=== PATIENT | male | born 1955 | race Caucasian/White ===

== ENCOUNTER 2022-09-27 02:48 | Emergency (ER) | payer MEDICARE, BC, SELFPAY ==
[2022-09-27 02:59] VITALS: BP 161/89; PULSE 91; RESP 16; TEMP 36.6; O2SAT 95; BMI 27.2
--- NOTE | 2022-09-27 03:21 | CRLHL7_ITS ---
For Patients: As a result of the Cures Act, medical imaging exams and procedure reports are released immediately into your electronic medical record. You may view this report before your referring provider. If you have questions, please contact your health care provider. INDICATION: Fall, trauma. TECHNIQUE: CT head without contrast. COMPARISON: None. FINDINGS: No intracranial hemorrhage. No discrete mass or mass effect. There is no midline shift. The basilar cisterns are patent. No hydrocephalus. The rashid-white matter interface is otherwise preserved. No acute osseous abnormality. No extracalvarial soft tissue abnormality. The mastoid air cells are clear. Partial opacification of the ethmoid air cells and maxillary sinuses. Trace air-fluid level in the right maxillary sinus. High attenuation layering foci in the right maxillary base, potentially blood products. Subcutaneous edema abutting the right orbit. The visualized portions of the orbits and globes are unremarkable. IMPRESSION: No acute intracranial process per unenhanced head CT. Please note that all CT scans at this facility use dose modulation, iterative reconstruction, and/or weight-based dosing when appropriate to reduce radiation dose to as low as reasonably achievable. Dictated by Sean Griggs MD @ 09/27/2022 4:05:07 AM (Electronically Signed)
--- NOTE | 2022-09-27 03:21 | CRLHL7_ITS ---
For Patients: As a result of the Century Cures Act, medical imaging exams and procedure reports are released immediately into your electronic medical record. You may view this report before your referring provider. If you have questions, please contact your health care provider. INDICATION: Fall, impact right cheek and orbit. TECHNIQUE: CT maxillofacial without contrast. COMPARISON: Head CT same day. FINDINGS/IMPRESSION: Facial bones: Acute comminuted minimally depressed fracture of the superior orbital wall with extension into the frontal sinus. Acute comminuted minimally displaced inferior right orbital wall fracture. Acute comminuted fracture of the none the superior aspect of the medial orbital wall, axial images 147 through 130. Likely right lamina papyracea fracture. Orbits and globes: Small amount of extraconal air within the right orbit. Globes are intact. No discrete rectus entrapment. Sinuses: Blood products within the right maxillary sinus. There is blood products likely within the ethmoid air cells and frontal sinuses. Left maxillary mucosal wall thickening. Please note that all CT scans at this facility use dose modulation, iterative reconstruction, and/or weight-based dosing when appropriate to reduce radiation dose to as low as reasonably achievable. Dictated by Sean Griggs MD @ 09/27/2022 4:13:56 AM (Electronically Signed)
--- NOTE | 2022-09-27 03:31 | ED.GENADULT ---
HPI - General Adult General Chief complaint: Laceration/Wound Stated complaint: need stiches on right eyebrow Time Seen by Provider: 09/27/22 03:00 Source: patient Mode of arrival: ambulatory Limitations: no limitations History of Present Illness HPI narrative: Generally healthy 67-year-old male coming in today after slipping on the concrete and falling face forward. Patient was caring some gets when he lost his footing and fell hitting his forehead on the ground. He suffers a laceration to the right eyebrow area. He denies headache, blurry vision. He denies any neck pain or other injury. He is not on any blood thinners. Last tetanus was in 2012. Related Data Home Medications Medication Instructions Recorded Confirmed montelukast 10 mg tablet mg 09/27/22 Allergies Allergy/AdvReac Type Severity Reaction Status Date / Time No Known Drug Allergies Allergy Verified 09/27/22 03:01 Review of Systems Status of ROS: Reports: 10 or more systems reviewed and unremarkable except as noted in History and below PFSH [facility] Social History Smoking Status: Unknown if ever smoked Exam Narrative: Exam Narrative: Well-nourished well-developed patient in no acute distress. Alert and oriented. Answers questions appropriately. Mood and affect are appropriate. Thoughts are goal oriented and rational. No tangential or magical thinking noted. Patient speaks in full sentences without needing to catch his breath. GCS is 15. Speech is slightly slurred, patient is clearly intoxicated. HEENT: Normocephalic . Pupils are equally round reactive to light. Extraocular muscles are intact. Conjunctivae are moist without any icterus noted. Moist mucous membranes. Neck is soft without any lymphadenopathy. He has no tenderness to palpation over the cervical spine. He has full range of motion with flexion, extension, side bending and rotation. He does have a approximately 1 inch laceration just lateral to the right eyebrow the penetrates the dermis and goes into the subcutaneous tissue. He has surrounding ecchymosis. He has no crepitus or tenderness around the orbit. Cardiovascular: Heart is regular rate and rhythm. Lungs: Clear to auscultation bilaterally. Patient takes deep breaths without any discomfort. Abdomen: Soft and nontender with normal bowel sounds. Strength is 5/5 of the upper and lower extremities. Cranial nerves 3-12 are normal. There is no nystagmus either horizontally or vertically. Gait is normal. Back: Normal appearance. No tenderness over the thoracic or lumbar spine. No bruising or abrasions noted. Const: Vital Signs, click to edit/add: Vital Signs - 24 hr 09/27/22 02:59 09/27/22 06:52 Temperature 97.8 F 98.0 F Pulse Rate [Left P ulse Oximeter] 91 97 Respiratory Rate 16 18 Blood Pressure [Le ft Upper Arm] 161/89 H 139/94 H Pulse Oximetry 95 96 Oxygen Delivery Me thod Room Air Room Air Course Course Hospital Course: We proceeded with a head, cervical and facial CT-facial CT does show multiple acute fractures around the orbit. Head and cervical spine CT unremarkable. His eyebrow laceration was anesthetized with lidocaine. Wound was then cleaned, irrigated and explored. No debris was found inside. The wound does extend into the subcutaneous tissue and does not penetrate through the subcutaneous tissue. There is no bone visible. 1 6.0 Vicryl suture was placed in the subcutaneous space to hold that space together, this was followed by simple interrupted sutures with 5 0 Ethilon on the skin. I did speak to at [facility], he did recommend the patient be transferred so that he could be evaluated by the facial trauma team. Vital Signs Vital signs: Initial Vital Signs Temperature 97.8 F 09/27/22 02:59 Temperature Source Temporal Artery Scan 09/27/22 02:59 Pulse Rate 91 09/27/22 02:59 Respiratory Rate 16 09/27/22 02:59 Blood Pressure 161/89 H 09/27/22 02:59 Blood Pressure Mean 113 09/27/22 02:59 Blood Pressure Position Sitting 09/27/22 02:59 Pulse Oximetry 95 09/27/22 02:59 Oxygen Delivery Method 09/27/22 02:59 Vital Signs Temperature 97.8 F 09/27/22 02:59 Pulse Rate 91 09/27/22 02:59 Respiratory Rate 16 09/27/22 02:59 Blood Pressure 161/89 H 09/27/22 02:59 Pulse Oximetry 95 09/27/22 02:59 Oxygen Delivery Method 09/27/22 02:59 Temperature 98.0 F 09/27/22 06:52 Pulse Rate 97 09/27/22 06:52 Respiratory Rate 18 09/27/22 06:52 Blood Pressure 139/94 H 09/27/22 06:52 Pulse Oximetry 96 09/27/22 06:52 Oxygen Delivery Method 09/27/22 06:52 Medical Decision Making MDM Narrative Medical decision making narrative: 67-year-old male status post fall with facial laceration and multiple facial fractures. Patient will be transferred to [facility] for further management. Unfortunately, there are no ambulances available for transfer therefore patient will be in our ER for the next couple of hours until one becomes available. Patient transferred just after 7:[address] scan - head: Attestation: I have reviewed the pertinent imaging results. Radiologist's impression: CT head without contrast. COMPARISON: None. FINDINGS: No intracranial hemorrhage. No discrete mass or mass effect. There is no midline shift. The basilar cisterns are patent. No hydrocephalus. The rashid-white matter interface is otherwise preserved. No acute osseous abnormality. No extracalvarial soft tissue abnormality. The mastoid air cells are clear. Partial opacification of the ethmoid air cells and maxillary sinuses. Trace air-fluid level in the right maxillary sinus. High attenuation layering foci in the right maxillary base, potentially blood products. Subcutaneous edema abutting the right orbit. The visualized portions of the orbits and globes are unremarkable. IMPRESSION: No acute intracranial process per unenhanced head CT. CT facial bones: Attestation: I have reviewed the pertinent imaging results. Radiologist's impression: CT maxillofacial without contrast. COMPARISON: Head CT same day. FINDINGS/IMPRESSION: Facial bones: Acute comminuted minimally depressed fracture of the superior orbital wall with extension into the frontal sinus. Acute comminuted minimally displaced inferior right orbital wall fracture. Acute comminuted fracture of the none the superior aspect of the medial orbital wall, axial images 147 through 130. Likely right lamina papyracea fracture. Orbits and globes: Small amount of extraconal air within the right orbit. Globes are intact. No discrete rectus entrapment. Sinuses: Blood products within the right maxillary sinus. There is blood products likely within the ethmoid air cells and frontal sinuses. Left maxillary mucosal wall thickening. CT cervical spine: Attestation: I have reviewed the pertinent imaging results. Radiologist's impression: CT cervical spine without contrast. COMPARISON: None. FINDINGS: Vertebrae: Alignment is normal. There are no fractures or suspicious bony lesions. Discs and facet joints: Mild multilevel degenerative disc and facet joint spondylosis. Extraspinal findings: Prevertebral soft tissues, visualized airway, and visualized lungs are unremarkable. IMPRESSION: No sign of acute injury in the cervical spine. Discharge Plan Discharge Clinical Impression: Laceration, Orbital fracture Patient Disposition: Xfer Other Discharge Location: [facility] Condition: Stable Prescriptions: No Action montelukast 10 mg tablet Label Comments: TAKE 1 TABLET (10 MG) BY MOUTH AT BEDTIME. Stand Alone Forms: [employer] Info Instructions
--- NOTE | 2022-09-27 04:13 | CT_ITS ---
Patient: FABIOLA FLORES Facility:?[facility] Patient ID:?[id number] Site Patient ID:?[id number]. Site :?[id number] Study:?CT-Spine Cervical without contrast-09/27/2022 4:39:15 AM Ordering Physician:Mary Turcios Final Report: INDICATION: Facial injury, fall. TECHNIQUE: CT cervical spine without contrast. COMPARISON: None. FINDINGS: Vertebrae: Alignment is normal. There are no fractures or suspicious bony lesions. Discs and facet joints: Mild multilevel degenerative disc and facet joint spondylosis. Extraspinal findings: Prevertebral soft tissues, visualized airway, and visualized lungs are unremarkable. IMPRESSION: No sign of acute injury in the cervical spine. Please note that all CT scans at this facility use dose modulation, iterative reconstruction, and/or weight-based dosing when appropriate to reduce radiation dose to as low as reasonably achievable. Dictated by Dung Roldan MD @ 09/27/2022 4:44:23 AM Signed by:?Dung Roldan MD @09/27/2022 4:44:23 AM (Electronic Signature)
[2022-09-27] MEDS: TETANUS/DIPHTH/PERTUSSIS 0.5 ML SYRINGE IM (04:31)
--- NOTE | 2022-09-27 04:59 | ED.NURSE ---
ice applied to face per MD request
[2022-09-27 06:52] VITALS: BP 139/94; PULSE 97; RESP 18; TEMP 36.7; O2SAT 96
--- NOTE | 2022-09-27 07:35 | ED.NURSE ---
pt resting in bed, sutures to r brow. r eye bruised and sl swollen. denies pain. [facility] here to transfer pt to [facility] ED. pt states family aware he is transferring there.
== END 2022-09-27 07:45 | disposition other institution (70) ==
PROVIDERS: Emergency Provider Family Medicine; PCP Family Medicine
DX: S01.111A Laceration without foreign body of right eyelid and periocular area, initial encounter (principal); W01.0XXA Fall on same level from slipping, tripping and stumbling without subsequent striking against object, initial encounter; S02.85XA Fracture of orbit, unspecified, initial encounter for closed fracture
CPT/HCPCS: 12011; 70450; 70486; 72125; 90471; 90715; 99284; 99285

== ENCOUNTER 2022-09-27 07:33 | Outpatient (CLI) | payer MEDICARE, BC, SELFPAY | END 2022-09-27 07:34 | disposition home or self-care (01) | LOC: AMB 09-29 11:06 | PROVIDERS: PCP Family Medicine; Visit Provider Family Medicine | DX: S02.85XS Fracture of orbit, unspecified, sequela (principal) | CPT/HCPCS: A0425; A0426 ==